=== PATIENT | male | born 1970 | race Caucasian/White ===

== ENCOUNTER 2017-10-18 09:26 | Day surgery (SDC) | payer BC ==
[2017-10-18] MEDS: LR 1,000 ML IV (10:02)
[2017-10-18] MEDS ORDERED: LIDOCAINE 2% INJ 100 MG/5 ML SDV (FOR ANES.) As Ordered (10:25)
[2017-10-18] MEDS ORDERED: PROPOFOL 200 MG/20 ML VIAL As Ordered (10:25)
[2017-10-18] MEDS ORDERED: fentaNYL 100 MCG/2 ML INJECTION (J3010) As Ordered ×2 (10:26→11:12)
[2017-10-18] MEDS ORDERED: MIDAZOLAM INJ 2 MG/2 ML VIAL (J2250) As Ordered ×2 (10:26→10:48)
[2017-10-18 10:28] LABS: PROTHROMBIN TIME 12.2 SECONDS (12.4-14.5)
[2017-10-18] MEDS ORDERED: ONDANSETRON 4MG/2ML VIAL (J2405) As Ordered (11:31)
[2017-10-18] MEDS: LIDOCAINE 2% MDV 20 ML VIAL As Ordered (11:47)
[2017-10-18] MEDS: BUPIVACAINE HCL 0.25% 30 ML VIAL As Ordered (11:47)
[2017-10-18] MEDS: BACITRACIN OINT 30GM As Ordered (11:48)
[2017-10-18] MEDS ORDERED: LR 1,000 ML IV (12:15)
[2017-10-18] MEDS ORDERED: fentaNYL 100 MCG/2 ML INJECTION (J3010) IV (12:15)
[2017-10-18] MEDS ORDERED: ONDANSETRON 4MG/2ML VIAL (J2405) IV (12:15)
[2017-10-18] MEDS ORDERED: ACETAMINOPHEN 650MG ER TAB (TYLENOL ARTHRITIS) PO (12:15)
[2017-10-18] MEDS ORDERED: PERCOCET 5MG/325MG TAB PO (12:15)
== END 2017-10-18 14:30 | disposition home or self-care (01) ==
LOC: M SDC 09:26
DX: N43.2 Other hydrocele (principal); E03.9 Hypothyroidism, unspecified
CPT/HCPCS: 55060